=== PATIENT | female | born 1950 | race Caucasian/White ===

== ENCOUNTER 2021-02-23 14:03 | Outpatient (CLI) | payer MEDICARE, SELFPAY ==
--- NOTE | 2021-02-23 14:16 | XR_ITS ---
WS: [id number] PA and lateral chest, 02/23/2021 Clinical Data: ADVENTITIOUS LUNG SOUNDS Comparison: None. Findings: No nodules, masses or effusions are seen. The heart is normal. The pulmonary vascularity is not remarkable. No pneumonia or pneumothorax is seen. There are clips in the right upper quadrant fr om a cholecystectomy. The aortic arch and descending aorta are minimally tortuous. XR/XR chest 2V* [id number] Impression: Atherosclerosis.
== END 2021-02-23 14:04 | disposition home or self-care (01) ==
PROVIDERS: PCP Nurse Practitioner Family; Visit Provider Nurse Practitioner Family
DX: R06.89 Other abnormalities of breathing (principal); I70.90 Unspecified atherosclerosis
CPT/HCPCS: 71046

== ENCOUNTER 2021-02-24 11:35 | Emergency (ER) | payer MEDICARE, SELFPAY ==
[2021-02-24 11:51] VITALS: BP 121/78; PULSE 88; RESP 18; TEMP 37.7; O2SAT 95; BMI 25.8
--- NOTE | 2021-02-24 12:14 | XRR_ITS ---
PROCEDURE INFORMATION: Exam: XR Chest Exam date and time: 02/24/2021 12:14 PM Age: 70 years old Clinical indication: Cough and fever; Additional info: Fever, cough TECHNIQUE: Imaging protocol: XR of the chest. Views: 1 view. COMPARISON: CR XR chest 2V* [id number] 02/23/2021 2:22 PM FINDINGS: Lungs: Alveolar airspace disease in the right lower lobe suspicious for pneumonia. Calcified granuloma in the right upper lobe is stable. Pleural spaces: No pleural effusion. No pneumothorax. Heart/Mediastinum: The cardiac silhouette and mediastinal contours are unremarkable. Bones/joints: Unremarkable for age. XR/XR chest 1V portable [id number] IMPRESSION: 1. Alveolar airspace disease in the right lower lobe suspicious for pneumonia. Recommend clinical correlation. Recommend followup chest x-ray to ensure resolution. 2. Incidental/nonacute findings are listed in the report.
--- NOTE | 2021-02-24 12:28 | ED_ITS ---
HPI - General Adult General: Chief complaint: General Medical Stated complaint: LOW SODIUM SENT BY DOC Time Seen by Provider: 02/24/21 12:01 Source: patient, RN notes reviewed and old records reviewed Mode of arrival: ambulatory Limitations: no limitations History of Present Illness: HPI narrative: This is a 70-year-old female who has been feeling unwell for about 6 days. Symptoms include low-grade fever, mild cough, loose stools, significant weakness. She has a lack of energy and as she was not getting better she went to see her primary care provider yesterday and they did some lab work on her. She says she was called today and was told that her sodium was very low although she does not know what the numbers were. She was then asked to come to the emergency department to be evaluated. She denies any sick contacts. Onset (ago): day(s) (6) Associated symptoms: Reports cough, fevers/chills and malaise; Deny chest pain, confusion, diaphoresis, decreased appetite, dyspnea, headache(s), nausea, rash, palpitations, seizures, short of breath, syncope, vo miting or weakness Treatments prior to arrival: none Review of Systems General: Reports: 10 or more systems reviewed and unremarkable except in HPI and below Const: Reports: malaise; Denies: diaphoresis Card: Denies: chest pain, palpitations or syncope Resp: Denies: dyspnea GI: Denies: nausea or vomiting Skin/Breast: Denies: rash Neuro: Denies: headache(s) or confusion Physical Exam Const: COMMON NORMALS: no acute distress, average body habitus, patient oriented x3, no limitations, healthy appearing, alert and well nourished HENMT: COMMON NORMALS: normocephalic, atraumatic and moist oral mucous membranes HEAD & SCALP: normocephalic and atraumatic Eye: COMMON NORMALS: Equal, round and reactive pupils present, EOMs intact bilaterally, conjunctivae normal and no scleral icterus CONJUNCTIVA: Yes conjunctivae normal PUPIL: Yes Equal, round and reactive pupils present Neck/C-Spine: COMMON NORMALS: no meningeal signs and no JVD Resp: COMMON NORMALS: normal respiratory effort, No retractions, No use of accessory muscles, clear to auscultation bilaterally and percussion normal AUSCULTATION: clear to auscultation bilaterally PERCUSSION: percussion normal Cardio: COMMON NORMALS: no JVD, regular rate, regular rhythm, S1 normal heart sound present, S2 normal heart sound present, No gallops present (Cardio), No clicks present (Cardio), No murmurs present (Cardio), No rub (Cardio) and Peripheral pulses 2+ throughout RATE: regular rate RHYTHM: regular rhythm HEART SOUNDS: S1 normal heart sound present and S2 normal heart sound present PERIPHERAL PULSES: Peripheral pulses 2+ throughout GI: COMMON NORMALS: Normal to inspection, nondistended, normoactive bowel sounds present, Soft to palpation, non-tender, No hepatosplenomegaly present, no masses and no bruits PALPATION: Yes Soft to palpation and Yes No hepatosplenomegaly present Extremity: COMMON NORMALS: normal to inspection, full ROM, capillary refill normal, no calf tenderness and no pedal edema Neuro: COMMON NORMALS: patient oriented x3 SENSORIUM/ORIENTATION: Yes alert MENINGEAL SIGNS: Yes no meningeal signs Skin: COMMON NORMALS: no rashes or lesions noted, no wounds, turgor normal, no jaundice, no petechiae and no mottling GENERAL SKIN EXAM: no rashes or lesions noted and turgor normal Course Vital Signs: Vital signs: Vital Signs Temperature 99.9 F H 02/24/21 11:51 Pulse Rate 90 02/24/21 16:19 Respiratory Rate 15 02/24/21 16:19 Blood Pressure 127/65 02/24/21 16:19 Pulse Oximetry 97 02/24/21 16:19 MDM - General Adult MDM Narrative: Medical decision making narrative: 70-year-old female patient conner quintero has been feeling unwell for about 6 days. A lot of her symptoms include diarrhea and significant weakness. She was seen in the clinic yesterday and laboratory work-up shows hyponatremia she was then sent to the emergency department to be seen. In the emergency department she was hyponatremic but also tested positive for COVID-19. She met the clinical criteria for monoclonal antibody infusion and she received Regeneron while she was in the emergency department. She is not hypoxic and did not require oxygen supplementation. She also has a urinary tract infection and was given a dose of intravenous ceftriaxone for this. She is discharged home with oral Augmentin. She is to follow-up with her primary care provider. Medical Records: Attestation: I reviewed the patient's medical records. Lab Data: Attestation: I reviewed the patient's lab results. Labs: Lab Results 02/24/21 02/24/21 02/24/21 Range/Units 12:04 12:09 12:09 WBC 2.7 L (4.0-10.0) 10^3/ uL RBC 5.05 (4.1-5.3) 10^6/u L Hgb 15.7 H (11.5-15.3) g/dL Hct 45.3 (37.0-47.0) % MCV 89.7 (81-99) fL MCH 31.1 (28.0-34.0) pg MCHC 34.7 (30.0-36.0) g/dL RDW 12.0 L (12.1-15.1) % Plt Count 179 (130-400) 10^3/c mm MPV 9.6 (7.4-10.4) fL Neut % (Auto) 60.2 % Lymph % (Auto) 26.4 % [place] % (Auto) 12.6 % Eos % (Auto) 0.0 % Baso % (Auto) 0.4 % Neut # (Auto) 1.62 L (1.8-7.7) 10^3/u L Lymph # (Auto) 0.7 L (0.8-4.8) 10^3/u L [place] # (Auto) 0.3 (0.2-0.9) 10^3/u L Eos # (Auto) 0.0 (0.0-0.8) 10^3/u L Baso # (Auto) 0.0 (0.0-0.1) 10^3/u L Nucleated RBC % (a uto) 0 % Nucleated RBCs # 0.0 /100WBC Sodium 123 L (136-145) mmol/L Potassium 3.1 L (3.5-5.1) mmol/L Chloride 87 L (98-107) mmol/L Carbon Dioxide 22 (22-29) mmol/L Anion Gap 17.1 (5-19) BUN 6 L (8-23) mg/dL Creatinine 0.5 (0.5-0.9) mg/dL GFR Calculation 122.7 (90-130) mL/min Glucose 99 (65-115) mg/dL Calculated Osmolal ity 254 L (285-295) mOsm/k g Calcium 8.1 L (8.5-10.5) mg/dL Total Bilirubin 0.3 (0.15-1.2) mg/dL AST 32 (0-32) U/L ALT 22 (0-33) U/L Alkaline Phosphata se 78 (35-105) IU/L C-Reactive Protein 3.1 (0.0-4.9) mg/L Total Protein 6.4 L (6.6-8.7) g/dL Albumin 4.0 (3.5-5.2) g/dL Globulin 2.4 (1.3-4.6) g/dL Procalcitonin 0.14 (0-0.5) ng/mL TSH 1.75 (0.27-4.20) uIU/ mL Urine Color Yellow (Yellow) Urine Appearance Hazy A (CLEAR) Urine pH 6 (5-7) Ur Specific Gravit y 1.015 (1.005-1.030) Urine Protein Neg (Negative) Urine Glucose (UA) Norm (Normal) Urine Ketones 3+ H (Negative) Urine Blood Neg (Negative) Urine Nitrate Negative (Negative) Urine Bilirubin Neg (Negative) Urine Urobilinogen 1 H (Negative) mg/dL Ur Leukocyte Cecilia ase 1+ H (Negative) Urine RBC None (0-2) /hpf Urine WBC 10-15 H (0-5) /hpf Ur Squamous Epith Cells 5-10 H (0-5) /hpf Amorphous Sediment Not Reportable Urine Bacteria 1+ H (NONE) /hpf Urine Mucus 1+ /hpf SARS-CoV-2 Ag (Rap id) (Negative) 02/24/21 Range/Units 12:16 WBC (4.0-10.0) 10^3/ uL RBC (4.1-5.3) 10^6/u L Hgb (11.5-15.3) g/dL Hct (37.0-47.0) % MCV (81-99) fL MCH (28.0-34.0) pg MCHC (30.0-36.0) g/dL RDW (12.1-15.1) % Plt Count (130-400) 10^3/c mm MPV (7.4-10.4) fL Neut % (Auto) % Lymph % (Auto) % [place] % (Auto) % Eos % (Auto) % Baso % (Auto) % Neut # (Auto) (1.8-7.7) 10^3/u L Lymph # (Auto) (0.8-4.8) 10^3/u L [place] # (Auto) (0.2-0.9) 10^3/u L Eos # (Auto) (0.0-0.8) 10^3/u L Baso # (Auto) (0.0-0.1) 10^3/u L Nucleated RBC % (a uto) % Nucleated RBCs # /100WBC Sodium (136-145) mmol/L Potassium (3.5-5.1) mmol/L Chloride (98-107) mmol/L Carbon Dioxide (22-29) mmol/L Anion Gap (5-19) BUN (8-23) mg/dL Creatinine (0.5-0.9) mg/dL GFR Calculation (90-130) mL/min Glucose (65-115) mg/dL Calculated Osmolal ity (285-295) mOsm/k g Calcium (8.5-10.5) mg/dL Total Bilirubin (0.15-1.2) mg/dL AST (0-32) U/L ALT (0-33) U/L Alkaline Phosphata se (35-105) IU/L C-Reactive Protein (0.0-4.9) mg/L Total Protein (6.6-8.7) g/dL Albumin (3.5-5.2) g/dL Globulin (1.3-4.6) g/dL Procalcitonin (0-0.5) ng/mL TSH (0.27-4.20) uIU/ mL Urine Color (Yellow) Urine Appearance (CLEAR) Urine pH (5-7) Ur Specific Gravit y (1.005-1.030) Urine Protein (Negative) Urine Glucose (UA) (Normal) Urine Ketones (Negative) Urine Blood (Negative) Urine Nitrate (Negative) Urine Bilirubin (Negative) Urine Urobilinogen (Negative) mg/dL Ur Leukocyte Cecilia ase (Negative) Urine RBC (0-2) /hpf Urine WBC (0-5) /hpf Ur Squamous Epith Cells (0-5) /hpf Amorphous Sediment Urine Bacteria (NONE) /hpf Urine Mucus /hpf SARS-CoV-2 Ag (Rap id) Positive H (Negative) Imaging Data^: CXR: Attestation: I personally reviewed and interpreted this imaging study as follows: Radiologist's impression: Dany Noren[address], [place] [address]MKsq ReportSigned Patient: Yahaira Gamez #: [id number]: 1950cct#:[id number]/Sex: 70 / FADM Date: 02/24/21Loc: ERRoom/Bed:Attending Dr: Ordering Provider/Ordering MD: Sveta Rob MD, [facility] [place] of Service: 02/24/21 Procedure(s): XR chest 1V portable [id number] Accession Number(s): [id number] Report Number: [id number] PROCEDURE INFORMATION: Exam: XR Chest Exam date and time: 02/24/2021 12:14 PM Age: 70 years old Clinical indication: Cough and fever; Additional info: Fever, cough TECHNIQUE: Imaging protocol: XR of the chest. Views: 1 view. COMPARISON: CR XR chest 2V* [id number] 02/23/2021 2:22 PM FINDINGS: Lungs: Alveolar airspace disease in the right lower lobe suspicious for pneumonia. Calcified granuloma in the right upper lobe is stable. Pleural spaces: No pleural effusion. No pneumothorax. Heart/Mediastinum: The cardiac silhouette and mediastinal contours are unremarkable. Bones/joints: Unremarkable for age. XR/XR chest 1V portable [id number] IMPRESSION: 1. Alveolar airspace disease in the right lower lobe suspicious for pneumonia. Recommend clinical correlation. Recommend followup chest x-ray to ensure resolution. 2. Incidental/nonacute findings are listed in the report. Dictated By:Flora Carrera MDSigned By:Flora Carrera MDSigned Date/Time:02/24/21 1326DD/ 1324 Discharge Plan Discharge Patient Disposition: Home Clinical Impression: Pneumonia due to 2019 novel coronavirus, Hyponatremia, Dehydration UTI (urinary tract infection) Qualifiers: Urinary tract infection type: acute cystitis Hematuria presence: without hematuria Qualified Code(s): N30.00 - Acute cystitis without hematuria Condition: Stable Prescriptions: New Augmentin 875-125 mg tablet 1 tab PO BID Qty: 10 RF: 0 Continued tizanidine 4 mg tablet 4 mg PO PRN PRN (Reason: MUSCLE SPASMS) RF: 0 lisinopril 20 mg tablet 20 mg PO DAILY RF: 0 amlodipine 5 mg tablet 5 mg PO BID RF: 0 aspirin 81 mg Tablet,Delayed Release (Dr/Ec) 81 mg PO DAILY RF: 0 tramadol 50 mg tablet 50 mg PO DAILY RF: 0 spironolactone 25 mg Tablet 25 mg PO DAILY RF: 0 potassium chloride 20 mEq tablet,ER particles/crystals 20 meq PO BID RF: 0 pravastatin 10 mg tablet 10 mg PO DAILY RF: 0 pantoprazole 40 mg tablet,delayed release (DR/EC) 40 mg PO DAILY RF: 0 hydrochlorothiazide 12.5 mg capsule 12.5 mg PO DAILY RF: 0 montelukast 10 mg tablet 10 mg PO DAILY RF: 0 Flovent HFA 220 mcg/actuation HFA aerosol inhaler 2 inh INHALATION Q12H RF: 0 bupropion HCl 300 mg tablet extended release 24 hr 300 mg PO DAILY RF: 0 duloxetine 60 mg capsule,delayed release(DR/EC) 60 mg PO DAILY RF: 0 pregabalin 25 mg capsule 25 mg PO DAILY RF: 0 Discharge Orders: Discharge ED (Routine); Ordered 02/24/21 Ordered By: Sveta Rob Referrals: Daisy Bethea NP [Primary Care Provider] - 1-3 days Discharge Diet: Usual diet Discharge Activity: Increase activity as tolerated Patient Instructions: Viral Pneumonia (ED), Dehydration (ED), Urinary Tract Infection in Women (ED), Hyponatremia (ED) Activity Restrictions/Additional Instructions: Return for any new or worsening symptoms. Follow up with your primary care provider within 3 days via telemedicine. Continue your home medications. Take the antibiotic as prescribed. Check your oxygen saturation with the pulse oximeter that was sent home with you. If your oxygen levels drop and stay below 90% you need to return for evaluation as you may need oxygen or be admitted to the hospital. Coding Level of Care Code ED Exercise Specialist for [place] [facility] Exam Comprehensive
[2021-02-24 12:36] LABS: Basophils % 0.4 %; Hematocrit 45.3 % (37.0-47.0); Hemoglobin 15.7 g/dL (11.5-15.3); Lymphocytes # 0.7 10^3/uL (0.8-4.8); Lymphocytes % 26.4 %; Mean Corpuscular HGB Conc 34.7 g/dL (30.0-36.0); Mean Corpuscular Hemoglobin 31.1 pg (28.0-34.0); Mean Corpuscular Volume 89.7 fL (81-99); Mean Platelet Volume 9.6 fL (7.4-10.4); Monocytes # 0.3 10^3/uL (0.2-0.9); Monocytes % 12.6 %; Neutrophils # 1.62 10^3/uL (1.8-7.7); Neutrophils % 60.2 %; Nucleated Red Blood Cells % 0 %; Platelet Count 179 10^3/cmm (130-400); Red Blood Count 5.05 10^6/uL (4.1-5.3); White Blood Count 2.7 10^3/uL (4.0-10.0)
[2021-02-24 12:47] VITALS: BP 116/66; PULSE 78; RESP 24; O2SAT 99
[2021-02-24 12:54] LABS: Procalcitonin 0.14 ng/mL (0-0.5); Thyroid Stimulating Hormone 1.75 uIU/mL (0.27-4.20)
[2021-02-24 13:03] LABS: Add Urine Microscopic? YES; Bilirubin Urine Neg (Negative); Blood Urine Neg (Negative); Glucose Urine UA Norm (Normal); Ketones Urine 3+ (Negative); Leukocyte Esterase Urine 1+ (Negative); Nitrate Urine Negative (Negative); Protein Urine Neg (Negative); Specific Gravity, Urine 1.015 (1.005-1.030); Urine Appearance Hazy (CLEAR); Urine Color Yellow (Yellow); Urobilinogen Urine 1 mg/dL (Negative); pH Urine 6 (5-7)
[2021-02-24 13:04] LABS: Add Urine Culture? No; Bacteria Urine 1+ /hpf; Mucus Urine 1+ /hpf
[2021-02-24 13:05] LABS: Alanine Aminotransferase 22 U/L (0-33); Alkaline Phosphatase 78 IU/L (35-105); Anion Gap 17.1 (5-19); Aspartate Amino Transferase 32 U/L (0-32); Blood Urea Nitrogen 6 mg/dL (8-23); C Reactive Protein 3.1 mg/L (0.0-4.9); Calcium 8.1 mg/dL (8.5-10.5); Carbon Dioxide 22 mmol/L (22-29); Chloride 87 mmol/L (98-107); Globulin 2.4 g/dL (1.3-4.6); Glomerular Filtration Rate 122.7 mL/min (90-130); Glucose 99 mg/dL (65-115); Osmolality Calculated 254 mOsm/kg (285-295); Potassium 3.1 mmol/L (3.5-5.1); Sodium 123 mmol/L (136-145); Total Bilirubin 0.3 mg/dL (0.15-1.2); Total Protein 6.4 g/dL (6.6-8.7)
[2021-02-24 13:43] LABS: SARS Covid-2 Antigen Positive (Negative)
[2021-02-24 14:00] VITALS: BP 132/80; PULSE 87; RESP 21; O2SAT 98
[2021-02-24] MEDS: cefTRIAXone 1,000 MG in sodium chloride 0.9% (plus) 50 ML 100 MG IV (14:04)
[2021-02-24] MEDS: sodium chloride 0.9% 1,000 ML 999 ML IV (14:04)
[2021-02-24 15:00] VITALS: BP 125/83; PULSE 89; RESP 14; O2SAT 97
[2021-02-24 16:19] VITALS: BP 127/65; PULSE 90; RESP 15; O2SAT 97
[2021-02-24] MEDS: dexamethasone 4 mg/mL INJ 6 MG IVP (16:22)
[2021-02-25 17:58] LABS: Quest SARS-CoV-2 RNA DETECTED (NOT DETECTED)
== END 2021-02-24 16:56 | disposition home or self-care (01) ==
PROVIDERS: Emergency Provider Family Medicine; PCP Nurse Practitioner Family
DX: U07.1 COVID-19 (principal); J12.82 Pneumonia due to coronavirus disease 2019; E87.1 Hypo-osmolality and hyponatremia; N30.00 Acute cystitis without hematuria
CPT/HCPCS: 71045; 80053; 81001; 84145; 84443; 85025; 86140; 87426; 87635; 96365; 96367; 96375; 99284; J0696; J1100; J7030

== ENCOUNTER → 2024-11-06 15:20 | Outpatient (BNVA) | payer MEDICARE, MEDICAID, SELFPAY | PROVIDERS: Visit Provider Family Medicine | DX: R06.02 Shortness of breath (principal); R91.8 Other nonspecific abnormal finding of lung field | CPT/HCPCS: 71046 ==

== ENCOUNTER 2025-05-23 12:17 | Outpatient (CLI) | payer MEDICARE, MEDICAID, SELFPAY ==
--- NOTE | 2025-05-23 12:24 | MR_ITS ---
WS: [id number] MRI THORACIC SPINE with and without contrast HISTORY: THORACIC RADICULOPATHY, mid back pain with no injury. COMPARISON: None available. TECHNIQUE: Multiplanar sequences are performed in sagittal and axial planes. Sagittal and axial T1 fat sat sequences post-MultiHance 14 cc IV. Mild increase in the upper thoracic kyphosis. Small amount of increased T2 STIR signal in the superior endplate of T9. There is mild anterior wedging of T9 by approximately 10%. No enhancement on the postcontrast imaging. There is very slight increased T1 and T2 signal in the T9 vertebral body. Mild concave deformity superior endplate of T6. Schmorl's node superior endplate of T8. T1-2: Normal. T2-3: Normal. T3-4: Normal. T4-5: Normal. T5-6: Small central disc protrusion. No stenosis. T6-7: Normal. T7-8: Normal. T8-9: Mild bilateral facet joint arthropathy and foraminal stenosis. T9-10: LEFT foraminal lobulated nerve root sleeve diverticulum. T10-11: Mild bilateral facet joint arthritis and foraminal stenosis. T11-12: Mild bilateral facet joint arthritis and foraminal stenosis. Mildly ectatic thoracic aorta. Ascending aorta measures 2.7 cm. 1.5 cm LEFT renal cyst. No discitis or osteomyelitis. No enhancing masses. 6.3 mm nodule RIGHT lung base. MR/MR thoracic spine wo/w [id number] IMPRESSION: 1. Very subtle edema along the superior endplate of T9 with mild anterior wedg ing. Suspicious for subacute fracture. There may be an associated vertebral bod y hemangioma present also. No retropulsion. 2. No enhancing masses within the vertebral bodies. 3. T6 and T8 mild anterior wedging, chronic. 4. 6.3 mm nodule at the RIGHT lung base. Recommend follow-up chest CT with IV contrast.
[2025-05-23] MEDS: gadobenate dimeglumine 20 mL vial IV (13:11)
== END 2025-05-23 12:18 | disposition home or self-care (01) ==
LOC: RAD 12:21
PROVIDERS: PCP Student in an Organized Health Care Education/Training Program; Visit Provider Nurse Practitioner Family
DX: M47.24 Other spondylosis with radiculopathy, thoracic region (principal); M51.24 Other intervertebral disc displacement, thoracic region; M48.04 Spinal stenosis, thoracic region; S22.050A Wedge compression fracture of T5-T6 vertebra, initial encounter for closed fracture; R91.1 Solitary pulmonary nodule
CPT/HCPCS: 72157